=== PATIENT | male | born 1935 | race Caucasian/White ===

== ENCOUNTER 2020-08-29 16:57 | Inpatient (IN) | payer MEDICARE, SELFPAY ==
[2020-08-29 17:03] VITALS: BP 150/90; PULSE 98; RESP 14; TEMP 36.6; O2SAT 95; BMI 21.9
--- NOTE | 2020-08-29 17:11 | ECG_ITS ---
Test Reason : VOMITING Blood Pressure : / mmHG Vent. Rate : 096 BPM Atrial Rate : 096 BPM P-R Int : 192 ms QRS Dur : 160 ms QT Int : 416 ms P-R-T Axes : 000 -44 133 degrees QTc Int : 525 ms Normal sinus rhythm Left axis deviation Left bundle branch block Abnormal ECG When compared with ECG of 17-MAY-2020 01:38, Fusion complexes are no longer Present Premature ventricular complexes are no longer Present Referred By: Norberto Spangler Electronically Signed By:MOHINDER BERGMAN MD
--- NOTE | 2020-08-29 17:18 | XR_ITS ---
EXAMINATION: XR CHEST CLINICAL INFORMATION: Chest pain. Pneumonia. COMPARISON: Chest x-ray 05/16/2020 TECHNIQUE: Frontal view of the chest was obtained. FINDINGS: Stable cardiac silhouette. Atherosclerotic disease of the aortic arch. Chronic diffuse coarsening of the interstitial markings. There is no gross lobar consolidation. No pleural effusion or pneumothorax. Degenerative changes of the spine. IMPRESSION: Chronic interstitial changes without acute pulmonary pathology.
--- NOTE | 2020-08-29 17:20 | ED_ITS ---
HPI - Chest Pain General Chief Complaint: Chest Pain Stated Complaint: vomiting chest pain Time Seen by Provider: 08/29/20 17:17 History of Present Illness HPI narrative: Patient presents to the ED for chest pain with nausea and vomiting since yesterday. Patient states having this multiple times before in the past. Patient states within the past month he has been to [facility] and [facility] for the same issue. Patient denies any swelling of lower extremity or shortness of breath. Patient states he is compliant with dialysis. Patient states his last dialysis was this past Thursday. Patient denies any recent long travel, recent surgery, calf pain, headache, dizziness, slurred speech, paralysis of extremities, facial droop, or neck pain. Patient has substernal chest pain MD complaint: chest pain Onset (ago): day(s) (1) Related Data Home Medications Medication Instructions Recorded Confirmed aspirin [Aspir-81] 81 mg PO DAILY 08/30/20 08/30/20 atorvastatin 80 mg PO DAILY 08/30/20 08/30/20 carvedilol 6.25 mg PO BID 08/30/20 08/30/20 clopidogrel 75 mg PO DAILY 08/30/20 08/30/20 furosemide 40 mg PO BID 08/30/20 08/30/20 glipizide 5 mg PO DAILY 08/30/20 08/30/20 isosorbide mononitrate 120 mg PO DAILY 08/30/20 08/30/20 losartan 25 mg PO DAILY 08/30/20 08/30/20 nifedipine 90 mg PO DAILY 08/30/20 08/30/20 nitroglycerin 0.4 mg SUBLINGUAL Q5M PRN 08/30/20 08/30/20 sevelamer carbonate 800 mg PO TID 08/30/20 08/30/20 terazosin 2 mg PO DAILY 08/30/20 08/30/20 Allergies Allergy/AdvReac Type Severity Reaction Status Date / Time hydralazine Allergy Mild NAUSEA AND Verified 08/29/20 18:06 VOMITING, hallucinations Review of Systems Review of Systems: Yes all other systems are reviewed and are negative Constitutional: Constitutional: Reports no additional constitutional complaints, Denies anorexia, Denies body ache(s), Denies chills, Denies daytime sleepiness, Denies excessive sweating, Denies fatigue and Denies fever(s) Eyes: Eyes: Reports as per HPI and Reports no additional eye complaints ENT: Reports system reviewed and no additional complaints, except as documented and Denies dysphagia Cardiovascular: Cardiovascular: Denies as per HPI, Denies no additional cardiovascular complaints, Denies Abdominal Cramping after Meds, Denies Abdominal Distension, Reports chest pain, Denies chest pain at rest, Denies chest pain with activity, Denies Epigastric Pain, Denies epigastric discomfort, Denies rapid heart rate, Denies pedal edema, Denies dyspnea and Denies dyspnea on exertion Respiratory: Respiratory: Reports as per HPI, Reports no additional respiratory complaints, Denies chest congestion, Denies hemoptysis, Denies excessive phlegm production, Denies pain with cough, Denies dyspnea and Denies dyspnea on exertion Gastrointestinal: Gastrointestinal: Reports as per HPI, Reports no additional gastrointestinal complaints, Denies abdominal pain, Denies belching, Denies melena, Denies bloating, Denies change in bowel habits, Denies change in stool character, Denies constipation, Denies dysphagia, Denies excessive flatus and Denies fecal incontinence Musculoskeletal: Musculoskeletal: Reports no additional musculoskeletal complaints Endocrine: Endocrine: Denies excessive sweating and Denies fatigue [facility] Past Medical History Medical History (Updated 08/30/20 @ 02:13 by GEGE Darby) Dialysis patient Kidney disease Social History Social History Advance Directives: No Advance Directives Information Provided: No Physical Exam Vital Signs: Vital Signs: Vital Signs Temp Pulse Resp BP Pulse Ox 08/29/20 22:27 92 16 131/84 94 08/29/20 21:00 97.6 F 101 H 21 H 142/89 H 97 08/29/20 18:07 89 140/88 H 08/29/20 17:03 97.9 F 98 14 150/90 H 95 Body Mass Index 23.6 Const: General: cooperative, healthy appearing, comfortable and no acute distress HENMT: Head: Yes normal to inspection Eyes: General: appearance normal, both eyes and all related structures Neck: Neck: Yes normal visual inspection, Yes full ROM and Yes no l ymphadenopathy Chest: Chest palpation & inspection: normal inspection of the chest, no crepitus and tenderness (palpalbe chest wall tenderness) sternum, costochondral junction and costal cartilage Resp: Effort & Inspection: normal respiratory effort, able to speak in complete sentences, normal respiratory pattern, no audible wheezes, no cough, no grunting, no paradoxical thoraco-abdom movements, no pursed lip breathing and no tracheal deviation Cardio: Rhythm: regular rhythm Heart sounds: S1 normal heart sound present and S2 normal heart sound present GI: Inspection: Yes normal to inspection, No abdominal wall ecchymosis, No Abdominal wall edema, No distended and No incision Palpation (GI): not firm, nontender, no guarding, not rigid and hepatosplenomegaly present Percussion: Yes normal to percussion Auscultation: normal bowel sounds Extrem: Other: lower extremities bilaterally negative any swelling, redness, pain edema, or calf tenderness General: Yes normal to inspection and Yes full ROM Course Course Course Narrative: due to patient's risk factors of CHF, H, history of diabetes, patient will have cardiac evaluation done. Patient will have chest x-ray done. Patient also given Pepcid. Patient does have significant chest wall tenderness on palpation which may be most likely costochondritis. Nurse Kameron spoke with daughter who states patient was recently seen and [facility] for the same thing and had palpable chest wall pain. Reevaluation(s) Reevaluation #1: patient is sleeping and not in any distress. On room air oxygen 95%. Chest x-ray does not show any pneumonia. Chest x-ray reading does not show fluid overload. BNP of of 2945 expected for someone history of end-stage renal disease. Awaiting for troponin result. Time: 19:52 Reevaluation #2: Patient's initial troponin came back at 69.4. I reviewed discharge papers and lab results from [facility] from his last ED visit on August 21 which showed a troponin high sensitivity of 211. So this is improvement. Unlikely patient having cardiac etiology. Patient's right presently potassium is normal. At [facility] potassium was hyperkalemic. Rest of patient's labs at baseline. Spoke with patient's daughter once again states patient presented similarly at [facility] on the 08/21/2020 with similar symptoms of chest wall pain and nausea. Patient presently sleeping and not any distress. Time: 19:53 Reevaluation #3: Patient's troponin came back 594. Most likely presently patient is having cardiac event. Spoke with Dr. Elizabeth of Cardiology and he was informed of patient's history, physical exam, and diagnostics. He was sent patient's of patient's EKGs and patient is a patient labs. He recommend patient be admitted and started on heparin drip. Heparin drip ordered. Case presented to Dr. Melara for admission. patient's chest pain presently in the ER is 2/10 MDM - Chest Pain MDM Narrative Medical decision making narrative: patient is having an NSTEMI. Patient will be admitted and started on heparin drip. Patient will be evaluated by Cardiology in the morning. Lab Data Result diagrams: 08/29/20 18:03 08/29/20 18:03 Labs: Lab Results 08/29/20 08/29/20 08/29/20 Range/Units 18:03 18:03 18:03 WBC 5.9 (4.8-10.8) X10*3/uL RBC 3.21 L (4.60-5.80) X10*6/uL Hgb 10.1 L (14.0-18.0) g/dl Hct 30.9 L (42-52) % MCV 96.3 (80-98) fL MCH 31.5 (27.0-33.0) pg MCHC 32.7 (31.0-36.0) g/dl RDW 14.4 (11.0-16.0) % Plt Count 180 (160-400) X10*3/uL MPV 11.1 (9.4-12.4) fL Immature Gran % (Auto) 0.2 (0.0-0.4) % Neut % (Auto) 84.5 H (45-73) % Lymph % (Auto) 6.2 L (20-40) % [place] % (Auto) 7.1 (2-11) % Eos % (Auto) 1.7 (0-4) % Baso % (Auto) 0.3 (0-2) % Lymph # (Auto) 0.4 L (1.2-4.9) X10*3/uL [place] # (Auto) 0.4 (0.1-1.2) X10*3/uL Eos # (Auto) 0.1 (0.0-0.4) X10*3/uL Baso # (Auto) 0.0 (0.0-0.2) X10*3/uL Abs Immat Gran (auto) 0.01 (0.00-0.03) X10*3/uL Absolute Neuts (auto) 5.0 (2.0-8.3) X10*3/uL Absolute Nucleated RBC 0.000 (0.0-0.012) X10*3/uL Nucleated RBC % (auto) 0.0 (0.0-0.2) /100WBC Smear Tech's Comments VERIFIED PT 12.9 (10.8-13.0) SEC INR 1.1 (0.9-1.1) APTT 38.5 H (24.1-38.0) SEC Sodium (135-145) mmol/L Potassium (3.3-5.1) mmol/l Chloride (96-108) mmol/L Carbon Dioxide (22-29) mmol/L Anion Gap (12-20) BUN (9-16) mg/dL Creatinine (0.5-1.4) mg/dL Estim Creat Clear Calc Estimated GFR Random Glucose (60-115) mg/dL Calcium (8.4-10.2) mg/dL Total Bilirubin (0.0-1.0) mg/dL Direct Bilirubin (0.0-0.5) mg/dL AST (5-37) U/L ALT (0-40) U/L Alkaline Phosphatase (39-117) U/L Troponin I High Sens 69.4 H (<3.5-35.0) ng/L B-Natriuretic Peptide 2945 H (<100) pg/mL Total Protein (6.5-8.0) g/dL Albumin (3.5-5.0) g/dL Lipase (8-78) U/L 08/29/20 08/29/20 08/29/20 Range/Units 18:03 22:12 23:31 WBC (4.8-10.8) X10*3/uL RBC (4.60-5.80) X10*6/uL Hgb (14.0-18.0) g/dl Hct (42-52) % MCV (80-98) fL MCH (27.0-33.0) pg MCHC (31.0-36.0) g/dl RDW (11.0-16.0) % Plt Count (160-400) X10*3/uL MPV (9.4-12.4) fL Immature Gran % (Auto) (0.0-0.4) % Neut % (Auto) (45-73) % Lymph % (Auto) (20-40) % [place] % (Auto) (2-11) % Eos % (Auto) (0-4) % Baso % (Auto) (0-2) % Lymph # (Auto) (1.2-4.9) X10*3/uL [place] # (Auto) (0.1-1.2) X10*3/uL Eos # (Auto) (0.0-0.4) X10*3/uL Baso # (Auto) (0.0-0.2) X10*3/uL Abs Immat Gran (auto) (0.00-0.03) X10*3/uL Absolute Neuts (auto) (2.0-8.3) X10*3/uL Absolute Nucleated RBC (0.0-0.012) X10*3/uL Nucleated RBC % (auto) (0.0-0.2) /100WBC Smear Tech's Comments PT (10.8-13.0) SEC INR (0.9-1.1) APTT (24.1-38.0) SEC Sodium 142 (135-145) mmol/L Potassium 4.7 (3.3-5.1) mmol/l Chloride 100 (96-108) mmol/L Carbon Dioxide 27 (22-29) mmol/L Anion Gap 20 (12-20) BUN 34 H (9-16) mg/dL Creatinine 5.37 H* (0.5-1.4) mg/dL Estim Creat Clear Calc 9.0 Estimated GFR 10 Random Glucose 213 H (60-115) mg/dL Calcium 9.2 (8.4-10.2) mg/dL Total Bilirubin 0.5 (0.0-1.0) mg/dL Direct Bilirubin 0.3 (0.0-0.5) mg/dL AST 17 (5-37) U/L ALT 17 (0-40) U/L Alkaline Phosphatase 99 (39-117) U/L Troponin I High Sens Cancelled 590.2 H D (<3.5-35.0) ng/L B-Natriuretic Peptide (<100) pg/mL Total Protein 6.7 (6.5-8.0) g/dL Albumin 4.0 (3.5-5.0) g/dL Lipase 23 (8-78) U/L ECG Data ECG #1: Interpretation: Normal sinus rhythm. Left axis deviation. Left bundle branch block. Ventricular rate 96. ECG #2: Interpretation: normal sinus. Left axis deviation, left bundle-branch block. EKG 1 and EKG 2 negative for STEMI Critical Care Time Critical Care Time Critical Care Time: Yes Total Critical Care Time: 60 Attestation: patient receive heparin drip after consulting with Dr. Elizabeth. Patient had repeat EKG to make sure there was no STEMI. Patient given aspirin. Patient's blood pressure under control without any hypertensive medication. No indication for nitrates. patient's chest pain improved with only ASA Discharge Plan Discharge Clinical Impression: Acute non-ST elevation myocardial infarction (NSTEMI) Patient Disposition: Admitted As Inpatient
[2020-08-29 18:07] VITALS: BP 140/88; PULSE 89
[2020-08-29] MEDS: Famotidine/PF 20 MG/2 ML VIAL IVPUSH (18:10)
[2020-08-29] MEDS: ondansetron HCL 4 MG/2 ML VIAL IVPUSH (18:11)
--- NOTE | 2020-08-29 18:13 | PC.NURSE ---
IV EST 29 G R FA, BLOOD TO LAB, MEDICATED PER ORDERS. EKG AND CXR DONE
[2020-08-29 18:24] LABS: Basophils Percent Auto 0.3 % (0-2); Eosinophils Absolute Auto 0.1 X10*3/uL (0.0-0.4); Eosinophils Percent Auto 1.7 % (0-4); Hematocrit 30.9 % (42-52); Hemoglobin 10.1 g/dl (14.0-18.0); Imm Gran Abs Auto 0.01 X10*3/uL (0.00-0.03); Imm Gran Pct Auto 0.2 % (0.0-0.4); Lymphocytes Absolute Auto 0.4 X10*3/uL (1.2-4.9); Lymphocytes Percent Auto 6.2 % (20-40); MANUAL DIFF FLAG SCAN; Mean Corpuscular HGB Conc 32.7 g/dl (31.0-36.0); Mean Corpuscular Hemoglobin 31.5 pg (27.0-33.0); Mean Corpuscular Volume 96.3 fL (80-98); Mean Platelet Volume 11.1 fL (9.4-12.4); Monocytes Absolute Auto 0.4 X10*3/uL (0.1-1.2); Monocytes Percent Auto 7.1 % (2-11); Neutrophils Percent Auto 84.5 % (45-73); Platelet Count 180 X10*3/uL (160-400); Red Blood Count 3.21 X10*6/uL (4.60-5.80); Red Cell Distribution Width 14.4 % (11.0-16.0); SCAN SMEAR FLAG 1; White Blood Count 5.9 X10*3/uL (4.8-10.8)
[2020-08-29 18:34] LABS: INTERNATIONAL NORM RATIO 1.1 (0.9-1.1); Prothrombin Time 12.9 SEC (10.8-13.0)
[2020-08-29 18:37] LABS: Partial Thromboplastin Time 38.5 SEC (24.1-38.0)
[2020-08-29 18:43] LABS: SLIDE REVIEW VERIFIED
[2020-08-29 19:00] LABS: Alanine Aminotransferase 17 U/L (0-40); Alkaline Phosphatase 99 U/L (39-117); Anion Gap 20 (12-20); Aspartate Amino Transferase 17 U/L (5-37); Bilirubin Direct 0.3 mg/dL (0.0-0.5); Bilirubin Total 0.5 mg/dL (0.0-1.0); Blood Urea Nitrogen 34 mg/dL (9-16); Calcium 9.2 mg/dL (8.4-10.2); Carbon Dioxide 27 mmol/L (22-29); Chloride 100 mmol/L (96-108); Estimated Glomerular Filt Rate 10; Glucose Random 213 mg/dL (60-115); Lipase 23 U/L (8-78); Potassium 4.7 mmol/l (3.3-5.1); Sodium 142 mmol/L (135-145); Total Protein 6.7 g/dL (6.5-8.0)
[2020-08-29 19:02] LABS: B Type Natriuretic Peptide 2945 pg/mL (<100)
[2020-08-29 19:34] LABS: Troponin-I High Sensitivity 69.4 ng/L (<3.5-35.0)
--- NOTE | 2020-08-29 20:26 | PC.NURSE ---
pt requesting to leave, provider explained to patient and daughter that he needed a repeat troponin. pt given sandwich, diet soda and pudding.
[2020-08-29 21:00] VITALS: BP 142/89; PULSE 101; RESP 21; TEMP 36.4; O2SAT 97
[2020-08-29 22:27] VITALS: BP 131/84; PULSE 92; PULSE 95; RESP 16; O2SAT 94
[2020-08-30] VITALS (10 sets, daily range): BP systolic 110–160; BP diastolic 59–84; PULSE 69–86; RESP 16–19; TEMP 36.1–36.9; O2SAT 93–97; BMI 23.6
--- NOTE | 2020-08-30 00:20 | PC.NURSE ---
pt redirected when getting out of bed. will call back when troponin level results are back.
[2020-08-30 00:30] LABS: Troponin-I High Sensitivity 590.2 ng/L (<3.5-35.0)
--- NOTE | 2020-08-30 00:31 | ECG_ITS ---
Test Reason : REPEAT Blood Pressure : / mmHG Vent. Rate : 087 BPM Atrial Rate : 087 BPM P-R Int : 194 ms QRS Dur : 166 ms QT Int : 446 ms P-R-T Axes : 066 -43 136 degrees QTc Int : 536 ms Normal sinus rhythm with intermittent aberrant ventricular conduction Left axis deviation Left bundle branch block Abnormal ECG When compared with ECG of 29-AUG-2020 17:11, Premature ventricular complexes with intermittent aberrant ventricular conduction are new Referred By: Norberto Spangler Electronically Signed By:MOHINDER BERGMAN MD
[2020-08-30] MEDS: Aspirin Enteric Coated 325 MG TABLET.DR PO (00:49)
[2020-08-30] MEDS: Heparin Sodium,Porcine 5,000 UNIT/ML VIAL 3810 UNIT IVPUSH (01:48)
[2020-08-30] MEDS: Heparin Sodium,Porcine/1/2NS 25,000 UNIT/250 ML IV.SOLN 8.21 UNIT IVCONT (01:49)
--- NOTE | 2020-08-30 02:33 | PC.NURSE ---
pt's repeat troponis elevated. plan is to admit patient, daughter aware.
--- NOTE | 2020-08-30 02:42 | PC.NURSE ---
called daughter Rachel and asked her if pt had a MOLST form or any wishes when it came to end of life. Rachel reports that there is no form in place, but there have been a few conversations with her father. He would prefer no aggressive intervention, comfort measures only, if he were to decline.
--- NOTE | 2020-08-30 02:45 | PM.IMHP ---
History of Present Illness Date of Service: 08/30/20 Chief Complaint: chest pain this is an 85-year-old male with past medical history of diabetes, hypertension, coronary artery disease, ESRD on dialysis Thursday and , who presents to the hospital with chest pain. On my interview patient is pretty lethargic, unable to focus on my questions but does endorse chest pain that started yesterday. Most of the history is obtained from the ED PA who saw the patient on initial presentation peer it appears the patient has been having chest pain for the past few weeks. He presented to [facility] in [place] with similar complaints last week. He returns today stating that he has been having chest pain on and off occurs on exertion. Reported to be heavy room in sensation, non-radiating. When asked the patient how bad the pain once he said not too bad on arrival to the ED hemodynamically stable with no significant abnormal vice Labs are significant for hemoglobin of 10.1, BUN of 34, creatinine of 5.3, initial troponin of 69.4, increased to 590.2 cardiology was consulted and patient was started on heparin ggt and will be admitted for further management history is obtained from chart as patient is lethargic and not cooperating. PMHx: HTN, diabetes, HLP, CAD, BPH, ESRD on dialysis, past surgical history: None Family history nonsignificant Social history: no hx of alcohol abuse, smoking or IV drug abuse Review of Systems Review of Systems: unable to obtain complete review of system is patient is lethargic and not answering questions appropriately [facility] Medical History Dialysis patient Kidney disease Social History Alcohol intake: never Smoking Status: Never smoker Use of substances other than those prescribed or required for medical reasons: No Advance Directives: No Advance Directives Information Provided: No Meds Allergies Allergy/AdvReac Type Severity Reaction Status Date / Time hydralazine Allergy Mild NAUSEA AND Verified 08/29/20 18:06 VOMITING, hallucinations Home Medications Medication Instructions Recorded Confirmed Type aspirin [Aspir-81] 81 mg PO DAILY 08/30/20 08/30/20 History atorvastatin 80 mg PO DAILY 08/30/20 08/30/20 History carvedilol 6.25 mg PO BID 08/30/20 08/30/20 History clopidogrel 75 mg PO DAILY 08/30/20 08/30/20 History furosemide 40 mg PO BID 08/30/20 08/30/20 History glipizide 5 mg PO DAILY 08/30/20 08/30/20 History isosorbide mononitrate 120 mg PO DAILY 08/30/20 08/30/20 History losartan 25 mg PO DAILY 08/30/20 08/30/20 History nifedipine 90 mg PO DAILY 08/30/20 08/30/20 History nitroglycerin 0.4 mg SUBLINGUAL Q5M PRN 08/30/20 08/30/20 History sevelamer carbonate 800 mg PO TID 08/30/20 08/30/20 History terazosin 2 mg PO DAILY 08/30/20 08/30/20 History Physical Exam Vital Signs and Narrative: Vital Signs: Last Vital Signs Temp 97.6 F 08/29/20 21:00 Pulse 92 08/29/20 22:27 Resp 16 08/29/20 22:27 BP 131/84 08/29/20 22:27 Pulse Ox 94 08/29/20 22:27 Body Mass Index 23.6 Const: General: cooperative and no acute distress Orientation/consciousness: patient oriented x3 Eyes: General: appearance normal, both eyes and all related structures Pupils: Equal, round and reactive pupils present Resp: Effort & Inspection: normal respiratory effort and able to speak in complete sentences Auscultation: clear to auscultation bilaterally Cardio: Rate: regular rate Rhythm: regular rhythm GI: Palpation (GI): Soft to palpation Auscultation: normal bowel sounds Skin: General skin exam: no rashes or lesions noted Neuro: General: patient oriented x3 Cranial nerves: Yes Equal, round and reactive pupils present Cognition (Neuro): normal cognition Extrem: General: Yes normal to inspection and Yes no pedal edema Results Labs Labs: Laboratory Tests 08/29/20 08/29/20 08/29/20 18:03 18:03 18:03 WBC 5.9 RBC 3.21 L Hgb 10.1 L Hct 30.9 L MCV 96.3 MCH 31.5 MCHC 32.7 RDW 14.4 Plt Count 180 MPV 11.1 Immature Gran % (Auto) 0.2 Neut % (Auto) 84.5 H Lymph % (Auto) 6.2 L [place] % (Auto) 7.1 Eos % (Auto) 1.7 Baso % (Auto) 0.3 Lymph # (Auto) 0.4 L [place] # (Auto) 0.4 Eos # (Auto) 0.1 Baso # (Auto) 0.0 Abs Immat Gran (auto) 0.01 Absolute Neuts (auto) 5.0 Absolute Nucleated RBC 0.000 Nucleated RBC % (auto) 0.0 Smear Tech's Comments VERIFIED PT 12.9 INR 1.1 APTT 38.5 H Sodium Potassium Chloride Carbon Dioxide Anion Gap BUN Creatinine Estim Creat Clear Calc Estimated GFR Random Glucose Calcium Total Bilirubin Direct Bilirubin AST ALT Alkaline Phosphatase Troponin I High Sens 69.4 H B-Natriuretic Peptide 2945 H Total Protein Albumin Lipase 08/29/20 08/29/20 08/29/20 18:03 22:12 23:31 WBC RBC Hgb Hct MCV MCH MCHC RDW Plt Count MPV Immature Gran % (Auto) Neut % (Auto) Lymph % (Auto) [place] % (Auto) Eos % (Auto) Baso % (Auto) Lymph # (Auto) [place] # (Auto) Eos # (Auto) Baso # (Auto) Abs Immat Gran (auto) Absolute Neuts (auto) Absolute Nucleated RBC Nucleated RBC % (auto) Smear Tech's Comments PT INR APTT Sodium 142 Potassium 4.7 Chloride 100 Carbon Dioxide 27 Anion Gap 20 BUN 34 H Creatinine 5.37 H* Estim Creat Clear Calc 9.0 Estimated GFR 10 Random Glucose 213 H Calcium 9.2 Total Bilirubin 0.5 Direct Bilirubin 0.3 AST 17 ALT 17 Alkaline Phosphatase 99 Troponin I High Sens Cancelled 590.2 H D B-Natriuretic Peptide Total Protein 6.7 Albumin 4.0 Lipase 23 Assessment and Plan (1) ESRD on dialysis: Status: Acute (2) Hypertension: Status: Acute (3) Acute non-ST elevation myocardial infarction (NSTEMI): Status: Acute (4) Diabetes: Status: Acute (5) Coronary artery disease: Status: Acute 85-year-old male admitted for chest pain found to have NSTEMI # NSTEMI - chest pain, troponin elevated at 590, EKG showed undeterminate rhythm plan: - Cardiology was consulted by ED physician, patient started on heparin GGT - continue aspirin, and Plavix from based - patient on atorvastatin and carvedilol at baseline will continue # elevated BNP - clinically does not appear to be in CHF exacerbation - Pt had no respiratory symptoms and reported no respiratory symptoms on arrival per PA - Sating 96% on RA - no tachypnea , no pedal edema Plan: - Continue home furosemide, Imdur, losartan, carvedilol - monitor respiratory status # CAD - status post stent - continue dual antiplatelets, carvedilol, # hypertension - stable - continue losartan, carvedilol # diabetes type 2 - on oral antihyperglycemic- will hold - start low-dose sliding scale insulin
--- NOTE | 2020-08-30 03:10 | PC.NURSE ---
pt report given to rn on floor, pt ready for transport
[2020-08-30] MEDS: 0.9 % Sodium Chloride Flush 3 ML SYRINGE IVFLUSH ×2 (08:01→16:23)
[2020-08-30] MEDS: Losartan Potassium 25 MG TABLET PO (08:04)
[2020-08-30] MEDS: Aspirin Enteric Coated 81 MG TABLET.DR PO (08:05)
[2020-08-30] MEDS: NIFEdipine ER 90 MG TAB.ER.24 PO (08:06)
[2020-08-30] MEDS: Furosemide 40 MG TABLET PO ×2 (08:06→21:23)
[2020-08-30] MEDS: Clopidogrel Bisulfate 75 MG TABLET PO (08:06)
[2020-08-30] MEDS: Atorvastatin Calcium 80 MG TABLET PO (08:06)
[2020-08-30] MEDS: carvediloL 6.25 MG TABLET PO ×2 (08:06→21:21)
[2020-08-30 08:30] LABS: Glucose, Whole Blood 147 mg/dL (60-115)
[2020-08-30 08:47] LABS: PTT Heparin Drip 67.1 SEC (53-77.9)
--- NOTE | 2020-08-30 09:49 | MHC.CM.PN ---
CM met with Patient who appeared slightly confused and very forgetful. CM spoke with Daughter/HCP/Vianca at [phone]. Patient lives alone in a ranch style home and Vianca has daily involvement, including driving Patient to HD Q , Sat to [facility] in [place]. The goal for dc is home with a new referral to [facility] for home PT, VS STR at [facility] with onsite HD. CM has initiated and will follow for dc planning. [facility] mailed certified letter to Vianca and a copy has been placed on the chart. Patient has a cane and his PCP is Dr. Micheal Paul. Patient's insurance is [employer] Medicare [employer]vant[employer] (referral sent to [facility] because Patient is listed as self pay).
--- NOTE | 2020-08-30 10:25 | MHC.CLN ---
WILL START 1800DIABETIC 2 GM NA LOW PHOS AND LOW K+ DIET PER RENAL
--- NOTE | 2020-08-30 11:00 | P.CONCA_ITS ---
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 He also has severely reduced ejection fraction on the echocardiography and congestive heart failure. He is coming in mainly if with complaint of chest pain. He is very confused and could not give any history. I do not know whether that is his baseline or this is a change in his mental status. His blood workup showed elevated troponin levels. He has presented multiple times like this and has been treated medically for NSTEMI. He also has moderate . Currently he is unable to give any history. Review of Systems Review of Systems: Yes all other systems are reviewed and are negative Cardiovascular: Comments: Denies chest pain or shortness of breath. Neurologic: Comments: Confused. Only oriented to self. [facility] Past Medical History Medical History Dialysis patient Kidney disease Social History Social History Household Members: Unknown / Unable to assess Housing: Unknown / Unable to assess Do you presently have visiting nurse or other home services: No Alcohol intake: never Smoking Status: Never smoker Use of substances other than those prescribed or required for medical reasons: Unknown Advance Directives: No Advance Directives Information Provided: No Do you have thoughts of harming others: None Do you have a plan to hurt others: No Plan Recently lost weight without trying: Unsure service: Yes Current occupational status: retired Meds Allergies Allergy/AdvReac Type Severity Reaction Status Date / Time hydralazine Allergy Mild NAUSEA AND Verified 08/29/20 18:06 VOMITING, hallucinations Home Medications Medication Instructions Recorded Confirmed Type aspirin [Aspir-81] 81 mg PO DAILY 08/30/20 08/30/20 History atorvastatin 80 mg PO DAILY 08/30/20 08/30/20 History carvedilol 6.25 mg PO BID 08/30/20 08/30/20 History clopidogrel 75 mg PO DAILY 08/30/20 08/30/20 History furosemide 40 mg PO BID 08/30/20 08/30/20 History glipizide 5 mg PO DAILY 08/30/20 08/30/20 History isosorbide mononitrate 120 mg PO DAILY 08/30/20 08/30/20 History losartan 25 mg PO DAILY 08/30/20 08/30/20 History nifedipine 90 mg PO DAILY 08/30/20 08/30/20 History nitroglycerin 0.4 mg SUBLINGUAL Q5M PRN 08/30/20 08/30/20 History sevelamer carbonate 800 mg PO TID 08/30/20 08/30/20 History terazosin 2 mg PO DAILY 08/30/20 08/30/20 History Physical Exam Vital Signs: Vital Signs: Vital Signs Temp Pulse Resp BP Pulse Ox 08/30/20 08:06 82 160/80 H 08/30/20 08:04 82 160/80 H 08/30/20 07:52 98.2 F 82 18 160/80 H 97 08/30/20 04:00 97.0 F 69 16 96 08/30/20 03:32 97.2 F 80 19 155/73 H 95 08/30/20 02:53 86 16 154/73 H 96 08/29/20 22:27 92 16 131/84 94 08/29/20 21:00 97.6 F 101 H 21 H 142/89 H 97 08/29/20 18:07 89 140/88 H 08/29/20 17:03 97.9 F 98 14 150/90 H 95 Body Mass Index 23.6 Const: Other: GENERAL APPEARANCE: in no acute distress, Frail. HEENT: unremarkable. HEAD: normocephalic, atraumatic. NECK/THYROID: no carotid bruit, no jugular venous distention. SKIN: no suspicious lesions, warm and dry. HEART: systolic murmur with preserved 2nd heart sound in the aortic area, regular rate and rhythm, S1, S2 normal. LUNGS: clear to auscultation bilaterally. ABDOMEN: normal, bowel sounds present, soft, nontender, nondistended. EXTREMITIES: no clubbing, cyanosis, or edema. PERIPHERAL PULSES: equal. NEUROLOGIC: nonfocal, oriented to self. PSYCH: mood/affect full range. Results Labs and Meds Result diagrams: 08/29/20 18:03 08/29/20 18:03 Lab results: Laboratory Results - last 24 hr 08/29/20 08/29/20 08/29/20 18:03 18:03 18:03 WBC 5.9 RBC 3.21 L Hgb 10.1 L Hct 30.9 L MCV 96.3 MCH 31.5 MCHC 32.7 RDW 14.4 Plt Count 180 MPV 11.1 Immature Gran % (Auto) 0.2 Neut % (Auto) 84.5 H Lymph % (Auto) 6.2 L Bartholomew % (Auto) 7.1 Eos % (Auto) 1.7 Baso % (Auto) 0.3 Lymph # (Auto) 0.4 L Bartholomew # (Auto) 0.4 Eos # (Auto) 0.1 Baso # (Auto) 0.0 Abs Immat Gran (auto) 0.01 Absolute Neuts (auto) 5.0 Absolute Nucleated RBC 0.000 Nucleated RBC % (auto) 0.0 Smear Tech's Comments VERIFIED PT 12.9 INR 1.1 APTT 38.5 H PTT (Heparin Protocol) Sodium Potassium Chloride Carbon Dioxide Anion Gap BUN Creatinine Estim Creat Clear Calc Estimated GFR POC Glucose Random Glucose Calcium Total Bilirubin Direct Bilirubin AST ALT Alkaline Phosphatase Troponin I High Sens 69.4 H B-Natriuretic Peptide 2945 H Total Protein Albumin Lipase 08/29/20 08/29/20 08/29/20 18:03 22:12 23:31 WBC RBC Hgb Hct MCV MCH MCHC RDW Plt Count MPV Immature Gran % (Auto) Neut % (Auto) Lymph % (Auto) Bartholomew % (Auto) Eos % (Auto) Baso % (Auto) Lymph # (Auto) Bartholomew # (Auto) Eos # (Auto) Baso # (Auto) Abs Immat Gran (auto) Absolute Neuts (auto) Absolute Nucleated RBC Nucleated RBC % (auto) Smear Tech's Comments PT INR APTT PTT (Heparin Protocol) Sodium 142 Potassium 4.7 Chloride 100 Carbon Dioxide 27 Anion Gap 20 BUN 34 H Creatinine 5.37 H* Estim Creat Clear Calc 9.0 Estimated GFR 10 POC Glucose Random Glucose 213 H Calcium 9.2 Total Bilirubin 0.5 Direct Bilirubin 0.3 AST 17 ALT 17 Alkaline Phosphatase 99 Troponin I High Sens Cancelled 590.2 H D B-Natriuretic Peptide Total Protein 6.7 Albumin 4.0 Lipase 23 08/30/20 08/30/20 07:50 07:50 WBC RBC Hgb Hct MCV MCH MCHC RDW Plt Count MPV Immature Gran % (Auto) Neut % (Auto) Lymph % (Auto) Bartholomew % (Auto) Eos % (Auto) Baso % (Auto) Lymph # (Auto) Bartholomew # (Auto) Eos # (Auto) Baso # (Auto) Abs Immat Gran (auto) Absolute Neuts (auto) Absolute Nucleated RBC Nucleated RBC % (auto) Smear Tech's Comments PT INR APTT PTT (Heparin Protocol) 67.1 Sodium Potassium Chloride Carbon Dioxide Anion Gap BUN Creatinine Estim Creat Clear Calc Estimated GFR POC Glucose 147 H Random Glucose Calcium Total Bilirubin Direct Bilirubin AST ALT Alkaline Phosphatase Troponin I High Sens B-Natriuretic Peptide Total Protein Albumin Lipase Cardiology Testing Echo: report reviewed Cardiac cath: report reviewed EKG Interpretation EKG Comments: ECG showed sinus rhythm with the left bundle-branch block which is chronic, lateral ST depressions with T-wave inversions which are more pronounced than before. Assessment and Plan (1) Chronic systolic (congestive) heart failure: Status: Acute (2) Coronary artery disease: Status: Acute (3) Hypertension: Problem details: resume outpt med Status: Acute (4) ESRD on dialysis: Status: Acute (5) Acute non-ST elevation myocardial infarction (NSTEMI): Status: Acute 85-year-old gentleman with known coronary artery disease for which he was proposed to undergo bypass surgery but refused surgery in the past and history of cardiomyopathy in EF 25%, end-stage renal disease on hemodialysis, hypertension and previous admissions with the NSTEMI was presenting with reported chest pain and biomarker evidence of NSTEMI. He is confused and cannot give any history right now. Clinically and hemodynamically currently stable. He is denying any chest discomfort shortness of breath. I think is reasonable to treat him for 48 hours with heparin drip. Blood pressure control looks okay right now. He will undergo his hemodialysis 3 times a week as before. He is DNR DNI. He has been admitted before with similar complaints. I think he needs a goals of care discussion. Thank you for allowing me to participate in the care of your patient. Please feel free to contact me if you have any questions.
[2020-08-30 11:11] LABS: Glucose, Whole Blood 182 mg/dL (60-115)
[2020-08-30] MEDS: Insulin Lispro 100 UNIT/ML 3 ML VIAL SUBCUT ×2 (11:33→21:18)
--- NOTE | 2020-08-30 12:06 | W.PM.DNNEP ---
Subjective Subjective This patient was seen during dialysis. Physical Exam Vital Signs: Vital Signs: Vital Signs Temp Pulse Resp BP Pulse Ox 08/30/20 11:16 98.5 F 72 18 137/84 94 08/30/20 08:06 82 160/80 H 08/30/20 08:04 82 160/80 H 08/30/20 07:52 98.2 F 82 18 160/80 H 97 08/30/20 04:00 97.0 F 69 16 96 08/30/20 03:32 97.2 F 80 19 155/73 H 95 08/30/20 02:53 86 16 154/73 H 96 08/29/20 22:27 92 16 131/84 94 08/29/20 21:00 97.6 F 101 H 21 H 142/89 H 97 08/29/20 18:07 89 140/88 H 08/29/20 17:03 97.9 F 98 14 150/90 H 95 oral moist mucosa neck no JVP lungs clear s1s2 abd soft nt +BS ext no edema LUE AVF OK Neuro Alert Body Mass Index 23.6 Assessment & Plan Assessment and plan (1) ESRD on dialysis: Problem details: HD today as planned gentle fluid removal orders in,OF 160 2k 2.5 Ca bath if SBP<100 give NS 500 ml IVB Status: Acute (2) Hypertension: Problem details: resume outpt med Status: Acute Assessment and Plan: NSTEMI, awauting further recs from Cards, presently tolerating HD well on heparin drip (3) Diabetes: Problem details: as per medical team Status: Acute Time Spent With Patient Time: Total time spent is greater than 50% in coordination of care (as documented) at patient's floor/unit and/or counseling patient:
--- NOTE | 2020-08-30 13:22 | CONS_ITS ---
DATE OF SERVICE: 08/30/2020 REASON FOR CONSULTATION: Evaluation of end-stage kidney disease, on intermittent hemodialysis. HISTORY OF PRESENT ILLNESS: Mr. Salazar is a very pleasant 85-year-old gentleman, who has been brought to the hospital for evaluation of chest pain. He has longstanding history of ESRD, on intermittent hemodialysis on Thursday, , Thursday at the [facility]. He was admitted for evaluation of chest pain. The patient was brought in after stating he was having chest pain along with shortness of breath. He reported heavy sensation in the center of his chest with no radiation. On arrival to the emergency room, he was hemodynamically stable, he was found to have an initial troponin level of 69, which increased to 590. Cardiology was consulted for evaluation as well. He does have a history of ESRD and he is due for his regular dialysis treatment today. PAST MEDICAL HISTORY: He is early on intermittent hemodialysis Thursday, , Thursday at [facility]. Hypertension, hyperlipidemia, diabetes mellitus, coronary artery disease, benign prostatic hypertrophy. OUTPATIENT MEDICATIONS: Include Plavix 75 mg daily, terazosin 2 mg daily, Renvela 800 mg 3 times a day with meals, losartan 25 mg daily, glipizide 5 mg daily, nifedipine 90 mg daily, atorvastatin 80 mg daily, Imdur 120 mg daily, carvedilol 6.25 mg twice daily, baby aspirin 81 mg daily, and Lasix 40 mg twice daily. ALLERGIES: HYDRALAZINE. SOCIAL HISTORY: Lives at home with his family. Denies history of smoking cigarettes. No alcohol intake. No illicit drugs. FAMILY HISTORY: Noncontributory. REVIEW OF SYSTEMS: Denies any nausea, vomiting, diarrhea, abdominal pain, melena, headache, visual changes, chest pain, shortness of breath, palpitations, cough, hemoptysis, hematemesis, or bright red blood per rectum at the time of my evaluation. PHYSICAL EXAMINATION: GENERAL: On physical evaluation, he is alert, in no apparent distress. He is afebrile, in no apparent distress, slightly confused. He was alert, oriented to person, but disoriented to time and place. VITAL SIGNS: His blood pressure is 131/80, heart rate of 92 per minute, oxygen saturation 94% on 2 L nasal cannula. HEENT: Oral moist mucosa. NECK: Reveals no jugular venous distention. LUNGS: Clear bilaterally. HEART: S1, S2. No S3, no S4. No murmurs. ABDOMEN: Soft, nontender. Positive bowel sounds. EXTREMITIES: Showed no ankle edema. Left upper extremity, well-developed AV fistula. NEUROLOGIC: Nonfocal. LABORATORY DATA: As mentioned above. Hemoglobin 10.1. Potassium 4.7. Troponin increased up to 590. Normal liver function tests. Chest x-ray not available. IMPRESSION: Mr. Satnam Salazar is a pleasant 85-year-old gentleman, who has a longstanding history of ESRD, on intermittent hemodialysis 3 times a week, who is admitted to the hospital for evaluation of chest pain. On evaluation, the patient has had improvement in his symptoms after starting therapy on aspirin and heparin drip. He is being evaluated by Cardiology, the patient has an EKG that has shown normal sinus rhythm with left axis deviation and a left bundle-branch block, his blood pressure has been unstable. He is now asymptomatic. We will follow up on Cardiology recommendations. In the meantime, we will plan to do his regular dialysis treatment today for 4 hours, will be gentle with fluid removal and we will resume his outpatient medication regimen. Presently, he is on carvedilol, which should be continued, phosphate binders, losartan 25 mg daily, and nifedipine 90 mg daily for blood pressure control. We will follow his blood pressures during hospitalization and if need be, adjust the blood pressure regimen. Fortunately, chest x-ray did not show fluid overload. At the present time, we will plan to remove fluid very gently with close monitoring of his vital signs and particularly blood pressure. With your permission, we will continue to follow during the hospital stay. MD MAGGIE Anaya/DEJON / [phone]
[2020-08-30 14:19] LABS: PTT Heparin Drip 53.4 SEC (53-77.9)
[2020-08-30 16:15] LABS: Glucose, Whole Blood 116 mg/dL (60-115)
[2020-08-30 21:20] LABS: Glucose, Whole Blood 201 mg/dL (60-115)
[2020-08-31] VITALS (10 sets, daily range): BP systolic 111–153; BP diastolic 56–72; PULSE 60–77; RESP 18–20; TEMP 35.6–36.9; O2SAT 93–97
[2020-08-31] MEDS: 0.9 % Sodium Chloride Flush 3 ML SYRINGE IVFLUSH ×3 (01:03→22:24)
[2020-08-31 06:45] LABS: Basophils Absolute Auto 0.1 X10*3/uL (0.0-0.2); Basophils Percent Auto 0.9 % (0-2); Eosinophils Absolute Auto 0.1 X10*3/uL (0.0-0.4); Hematocrit 29.9 % (42-52); Hemoglobin 9.8 g/dl (14.0-18.0); Imm Gran Abs Auto 0.02 X10*3/uL (0.00-0.03); Imm Gran Pct Auto 0.3 % (0.0-0.4); Lymphocytes Absolute Auto 0.7 X10*3/uL (1.2-4.9); Lymphocytes Percent Auto 10.6 % (20-40); MANUAL DIFF FLAG SCAN; Mean Corpuscular HGB Conc 32.8 g/dl (31.0-36.0); Mean Corpuscular Hemoglobin 31.5 pg (27.0-33.0); Mean Corpuscular Volume 96.1 fL (80-98); Mean Platelet Volume 11.4 fL (9.4-12.4); Monocytes Absolute Auto 0.6 X10*3/uL (0.1-1.2); Monocytes Percent Auto 9.8 % (2-11); Neutrophils Percent Auto 76.4 % (45-73); Platelet Count 191 X10*3/uL (160-400); Red Blood Count 3.11 X10*6/uL (4.60-5.80); Red Cell Distribution Width 14.3 % (11.0-16.0); SCAN SMEAR FLAG 1; White Blood Count 6.5 X10*3/uL (4.8-10.8)
[2020-08-31 06:54] LABS: PTT Heparin Drip 43.3 SEC (53-77.9)
[2020-08-31] MEDS: Heparin Sodium,Porcine/1/2NS 25,000 UNIT/250 ML IV.SOLN 7.62 UNIT IVCONT (06:59)
[2020-08-31 07:08] LABS: Anion Gap 16 (12-20); Blood Urea Nitrogen 27 mg/dL (9-16); Calcium 8.7 mg/dL (8.4-10.2); Carbon Dioxide 28 mmol/L (22-29); Chloride 96 mmol/L (96-108); Creatinine Clr Calc Pharmacy 12.7; Estimated Glomerular Filt Rate 14; Glucose Fasting 109 mg/dL (60-99); Potassium 4.1 mmol/l (3.3-5.1); Sodium 136 mmol/L (135-145)
[2020-08-31] MEDS: NIFEdipine ER 90 MG TAB.ER.24 PO (07:15)
[2020-08-31] MEDS: Losartan Potassium 25 MG TABLET PO (07:16)
[2020-08-31] MEDS: Aspirin Enteric Coated 81 MG TABLET.DR PO (07:16)
[2020-08-31] MEDS: Furosemide 40 MG TABLET PO ×2 (07:16→21:26)
[2020-08-31] MEDS: carvediloL 6.25 MG TABLET PO (07:16)
[2020-08-31] MEDS: Atorvastatin Calcium 80 MG TABLET PO (07:17)
[2020-08-31] MEDS: Clopidogrel Bisulfate 75 MG TABLET PO (07:17)
[2020-08-31 07:34] LABS: Glucose, Whole Blood 111 mg/dL (60-115)
[2020-08-31 07:49] LABS: SLIDE REVIEW VERIFIED
[2020-08-31] MEDS: Heparin Sodium,Porcine 5,000 UNIT/ML VIAL IVPUSH ×2 (08:29→22:19)
--- NOTE | 2020-08-31 10:55 | HO.PM.IMPN ---
Subjective Subjective Date of Service: 08/31/20 Interval History: no chest pain Cardiovascular Cardiovascular: Reports no additional cardiovascular complaints Respiratory Respiratory: Reports no additional respiratory complaints Gastrointestinal Gastrointestinal: Reports no additional gastrointestinal complaints Physical Exam Vital Signs: Vital Signs: Vital Signs Temp Pulse Resp BP Pulse Ox 08/31/20 07:32 96.0 F L 73 18 153/67 H 95 08/31/20 07:16 73 153/67 H 08/31/20 07:15 73 153/67 H 08/31/20 04:00 97.6 F 77 20 147/72 H 93 08/31/20 00:54 98.4 F 71 20 130/66 08/30/20 21:21 81 119/60 08/30/20 19:09 96.9 F 79 19 110/59 L 93 08/30/20 16:00 98.2 F 72 18 140/66 H 93 08/30/20 11:16 98.5 F 72 18 137/84 94 Body Mass Index 23.6 Const: Other: GENERAL APPEARANCE: in no acute distress, Frail. HEENT: unremarkable. HEAD: normocephalic, atraumatic. NECK/THYROID: no carotid bruit, no jugular venous distention. SKIN: no suspicious lesions, warm and dry. HEART: systolic murmur with preserved 2nd heart sound in the aortic area, regular rate and rhythm, S1, S2 normal. LUNGS: clear to auscultation bilaterally. ABDOMEN: normal, bowel sounds present, soft, nontender, nondistended. EXTREMITIES: no clubbing, cyanosis, or edema. PERIPHERAL PULSES: equal. NEUROLOGIC: nonfocal, oriented to self. PSYCH: mood/affect full range. General: cooperative, healthy appearing, comfortable and no acute distress Orientation/consciousness: patient oriented x3 Neuro: General: patient oriented x3 Objective Data Current Medications Generic Name Dose Route Start Last Admin Trade Name Freq PRN Reason Stop Dose Admin Acetaminophen 650 mg 08/30/20 03:34 Acetaminophen 325 Mg Tablet PO Q6H PRN Pain, Mild (Pain Scale 1-3) Aspirin 81 mg 08/30/20 09:00 08/31/20 07:16 Aspirin Enteric Coated 81 Mg Tablet. PO 81 mg DAILY MANDY Administration Atorvastatin Calcium 80 mg 08/30/20 09:00 08/31/20 07:17 Atorvastatin Calcium 80 Mg Tablet PO 80 mg DAILY MANDY Administration Carvedilol 12.5 mg 10/16/20 21:00 Carvedilol 12.5 Mg Tablet PO BID [facility] Protocol Clopidogrel Bisulfate 75 mg 08/30/20 09:00 08/31/20 07:17 Clopidogrel Bisulfate 75 Mg Tablet PO 75 mg DAILY MANDY Administration Docusate Sodium 100 mg 08/30/20 03:34 Docusate Sodium 100 Mg Capsule PO DAILY PRN Constipation Furosemide 40 mg 08/30/20 09:00 08/31/20 07:16 Furosemide 40 Mg Tablet PO 40 mg BID [facility] Administration Protocol Heparin Sodium (Porcine) 0 unit 08/31/20 08:19 08/31/20 08:29 Heparin Sodium,Porcine 5,000 Unit/Ml Vial IVPUSH 2,739.6 unit BOLUS PRN Administration BASED ON PTT-HD RESULTS Heparin Sodium/Sodium Chloride 25,000 unit in 250 mls @ 0 mls/hr 08/30/20 01:30 08/31/20 08:30 IVCONT 15.09 units/kg/hr .Q0M [facility] 9.58 mls/hr Titration Protocol Per Protocol Insulin Human Lispro 0 unit 08/30/20 07:30 08/31/20 08:44 Insulin Lispro 100 Unit/Ml 3 Ml Vial SUBCUT Not Given QIDACHS [facility] Protocol Losartan Potassium 25 mg 08/30/20 09:00 08/31/20 07:16 Losartan Potassium 25 Mg Tablet PO 25 mg DAILY [facility] Administration Protocol Nifedipine 90 mg 08/30/20 09:00 08/31/20 07:15 Nifedipine Er 90 Mg Tab.Er.24 PO 90 mg DAILY [facility] Administration Protocol Nitroglycerin 0.4 mg 08/30/20 03:34 Nitroglycerin 0.4 Mg Tab.Subl SUBLINGUAL Q5M PRN Chest Pain Ondansetron HCl 4 mg 08/30/20 03:34 Ondansetron Hcl 4 Mg/2 Ml Vial IVPUSH Q8H PRN Nausea and Vomiting Sodium Chloride 3 ml 08/30/20 08:00 08/31/20 07:03 0.9 % Sodium Chloride Flush 3 Ml Syringe IVFLUSH 3 ml QSHIFT [facility] Administration Labs CBC & Chem 7: 08/31/20 05:44 08/31/20 05:44 Assessment and Plan (1) ESRD on dialysis: Status: Acute (2) Hypertension: Problem details: resume outpt med Status: Acute (3) Acute non-ST elevation myocardial infarction (NSTEMI): Status: Acute (4) Diabetes: Problem details: as per medical team Status: Acute (5) Coronary artery disease: Status: Acute Assessment and Plan: 85-year-old male admitted for chest pain found to have NSTEMI NSTEMI in the setting of known CAD continue 48 hour course of heparin dual antiplatelet beta-juan hypertension losartan and Coreg Diabetes insulin
[2020-08-31 11:49] LABS: Glucose, Whole Blood 135 mg/dL (60-115)
--- NOTE | 2020-08-31 13:01 | PM.PNNEP ---
Subjective Subjective Interval history: no chest pain had HD yesterday no complaints Physical Exam Vital Signs: Vital Signs: Vital Signs Temp Pulse Resp BP Pulse Ox 08/31/20 11:30 96.6 F L 60 18 111/56 L 96 08/31/20 07:32 96.0 F L 73 18 153/67 H 95 08/31/20 07:16 73 153/67 H 08/31/20 07:15 73 153/67 H 08/31/20 04:00 97.6 F 77 20 147/72 H 93 08/31/20 00:54 98.4 F 71 20 130/66 08/30/20 21:21 81 119/60 08/30/20 19:09 96.9 F 79 19 110/59 L 93 08/30/20 16:00 98.2 F 72 18 140/66 H 93 Body Mass Index 23.6 Const: Other: oral moist mucosa lungs clear s1s2 abd soft +BSs ext noedema AVF +thrill General: cooperative Assessment & Plan Assessment and plan (1) ESRD on dialysis: Status: Acute Assessment and Plan: HD tomorrow thursday (2) Acute non-ST elevation myocardial infarction (NSTEMI): Status: Acute Assessment and Plan: as per cardiology, on heparin drip. ?need further therapy at present time. will follow recs (3) Hypertension: Problem details: resume outpt med, euvolemic today, meds reviewed. Status: Acute Assessment and Plan: Keep Low Na diet Time Spent With Patient Time: Total time spent is greater than 50% in coordination of care (as documented) at patient's floor/unit and/or counseling patient:
--- NOTE | 2020-08-31 13:37 | MHC.CM.PN ---
Home remains the first goal for dc. Patient was found to have NSTEMI and 48 hour course of Heparin is in progress. CM will follow.
[2020-08-31 15:44] LABS: PTT Heparin Drip 55.5 SEC (53-77.9)
[2020-08-31 16:05] LABS: Glucose, Whole Blood 211 mg/dL (60-115)
[2020-08-31] MEDS: Insulin Lispro 100 UNIT/ML 3 ML VIAL SUBCUT (16:34)
[2020-08-31 20:43] LABS: Glucose, Whole Blood 111 mg/dL (60-115)
[2020-08-31 21:26] LABS: PTT Heparin Drip 50.7 SEC (53-77.9)
[2020-08-31] MEDS: carvediloL 12.5 MG TABLET PO (21:28)
[2020-09-01] VITALS: BP 163/70; PULSE 72; RESP 18; TEMP 36.9; O2SAT 97
[2020-09-01 04:00] VITALS: BP 144/68; PULSE 61; RESP 16; TEMP 36.6; O2SAT 99
[2020-09-01 04:19] LABS: MANUAL DIFF FLAG NO
[2020-09-01 04:21] LABS: Basophils Percent Auto 0.7 % (0-2); Eosinophils Absolute Auto 0.2 X10*3/uL (0.0-0.4); Eosinophils Percent Auto 3.3 % (0-4); Hematocrit 29.4 % (42-52); Hemoglobin 9.6 g/dl (14.0-18.0); Imm Gran Abs Auto 0.01 X10*3/uL (0.00-0.03); Imm Gran Pct Auto 0.2 % (0.0-0.4); Lymphocytes Absolute Auto 0.8 X10*3/uL (1.2-4.9); Lymphocytes Percent Auto 13.4 % (20-40); Mean Corpuscular HGB Conc 32.7 g/dl (31.0-36.0); Mean Corpuscular Hemoglobin 31.3 pg (27.0-33.0); Mean Corpuscular Volume 95.8 fL (80-98); Mean Platelet Volume 10.8 fL (9.4-12.4); Monocytes Absolute Auto 0.6 X10*3/uL (0.1-1.2); Neutrophils Absolute Auto 4.2 X10*3/uL (2.0-8.3); Neutrophils Percent Auto 71.4 % (45-73); Platelet Count 179 X10*3/uL (160-400); Red Blood Count 3.07 X10*6/uL (4.60-5.80); Red Cell Distribution Width 14.2 % (11.0-16.0); White Blood Count 5.8 X10*3/uL (4.8-10.8)
[2020-09-01 04:29] LABS: PTT Heparin Drip 61.9 SEC (53-77.9)
[2020-09-01 05:02] LABS: Anion Gap 16 (12-20); Blood Urea Nitrogen 51 mg/dL (9-16); Calcium 8.2 mg/dL (8.4-10.2); Carbon Dioxide 25 mmol/L (22-29); Chloride 97 mmol/L (96-108); Estimated Glomerular Filt Rate 10; Glucose Fasting 184 mg/dL (60-99); Sodium 134 mmol/L (135-145)
--- NOTE | 2020-09-01 05:12 | PC.NURSE ---
2220 ptthd was 50.7 low given bolus 2739 units and drip increased to 16 units/kg/hr which is 10.95 ml/hr next ptthd at 0420
--- NOTE | 2020-09-01 05:26 | PC.NURSE ---
0430 PTTHD is 61.9 no change in heparin drip is 16 u/kg/hr 10.95 ml/hr next PTTHD DRAW AT 1030 AM
--- NOTE | 2020-09-01 07:20 | PC.NURSE ---
heparin drip in mar not matching the drip on pump i was told by previous nurse that order was placed and pt was weight again and was little diffrent then previous so adjusted heparin drip was done on pump and it has been running since rate is now 16u/kg/hr which is 10.95 ml/hr and its therapeutic now.
[2020-09-01 07:50] LABS: Glucose, Whole Blood 101 mg/dL (60-115)
--- NOTE | 2020-09-01 09:09 | P.DS_ITS ---
DS: Providers Provider Date of admission: 08/30/20 02:42 Primary care physician: Unknown Physician Consults: 08/30/20 04:28 Consult to Cardiology Routine Consulting Provider: Joey Elizabeth Reason for consultation: NSTEMI 08/30/20 08:54 Consult to Nephrology Routine Consulting Provider: Javi Villanueva Reason for consultation: ESRD Dialysis DS: Diagnosis Discharge Diagnosis (1) ESRD on dialysis: Status: Acute (2) Acute non-ST elevation myocardial infarction (NSTEMI): Status: Acute (3) Hypertension: Status: Acute Problem details: resume outpt med, euvolemic today, meds reviewed. DS: Summary Hospital Course Hospital Course: From initial H&P: 85-year-old male with past medical history of diabetes, hypertension, coronary artery disease, ESRD on dialysis Thursday and , who presents to the hospital with chest pain. On my interview patient is pretty lethargic, unable to focus on my questions but does endorse chest pain that started yesterday. Most of the history is obtained from the ED PA who saw the patient on initial presentation peer it appears the patient has been having chest pain for the past few weeks. He presented to [facility] in [place] with similar complaints last week. He returns today stating that he has been having chest pain on and off occurs on exertion. Reported to be heavy room in sensation, non-radiating. When asked the patient how bad the pain once he said not too bad on arrival to the ED hemodynamically stable with no significant abnormal vice Labs are significant for hemoglobin of 10.1, BUN of 34, creatinine of 5.3, initial troponin of 69.4, increased to 590.2 cardiology was consulted and patient was started on heparin ggt and will be admitted for further management history is obtained from chart as patient is lethargic and not cooperating. PMHx: HTN, diabetes, HLP, CAD, BPH, ESRD on dialysis, past surgical history: None hospital course: Patient was admitted for non ST elevation [place]. He was given IV heparin for 48 hours. course was complicated by some hospital delirium in the setting of dementia. Patient would benefit most from being in his familiar environment. He will be discharged home and continue dual antiplatelet and statin therapy. Time Spent with Patient Time attestation: Total time spent providing and/or coordinating discharge services: Physical Exam Vital Signs: Vital Signs: Vital Signs Temp Pulse Resp BP Pulse Ox 09/01/20 04:00 98 F 61 16 144/68 H 99 09/01/20 00:00 98.4 F 72 18 163/70 H 97 08/31/20 21:28 68 143/61 H 08/31/20 19:28 97.9 F 64 20 142/63 H 97 08/31/20 15:35 97.3 F 64 18 151/69 H 93 08/31/20 15:20 18 08/31/20 11:30 96.6 F L 60 18 111/56 L 96 Body Mass Index 23.6 General: confused, alert, no acute distress Resp: CTA bilateral CVS: S1,S2,RRR GI: soft, non tender, non distended Neuro: motor grossly intact Psych: impaired insight DS: Data Data Completed and Pending Labs on day of discharge: Labs from last 24 hours 09/01/20 09/01/20 09/01/20 08:48 07:45 04:13 WBC RBC Hgb Hct MCV MCH MCHC RDW Plt Count MPV Immature Gran % (Auto) Neut % (Auto) Lymph % (Auto) [place] % (Auto) Eos % (Auto) Baso % (Auto) Lymph # (Auto) [place] # (Auto) Eos # (Auto) Baso # (Auto) Abs Immat Gran (auto) Absolute Neuts (auto) Absolute Nucleated RBC Nucleated RBC % (auto) PTT (Heparin Protocol) Pending 61.9 D Sodium Potassium Chloride Carbon Dioxide Anion Gap BUN Creatinine Estim Creat Clear Calc Estimated GFR POC Glucose 101 Fasting Glucose Calcium 09/01/20 09/01/20 08/31/20 04:12 04:12 21:05 WBC 5.8 RBC 3.07 L Hgb 9.6 L Hct 29.4 L MCV 95.8 MCH 31.3 MCHC 32.7 RDW 14.2 Plt Count 179 MPV 10.8 Immature Gran % (Auto) 0.2 Neut % (Auto) 71.4 Lymph % (Auto) 13.4 L [place] % (Auto) 11.0 Eos % (Auto) 3.3 Baso % (Auto) 0.7 Lymph # (Auto) 0.8 L [place] # (Auto) 0.6 Eos # (Auto) 0.2 Baso # (Auto) 0.0 Abs Immat Gran (auto) 0.01 Absolute Neuts (auto) 4.2 Absolute Nucleated RBC 0.000 Nucleated RBC % (auto) 0.0 PTT (Heparin Protocol) 50.7 L Sodium 134 L Potassium 4.0 Chloride 97 Carbon Dioxide 25 Anion Gap 16 BUN 51 H D Creatinine 5.61 H* Estim Creat Clear Calc 9.0 Estimated GFR 10 POC Glucose Fasting Glucose 184 H D Calcium 8.2 L 08/31/20 08/31/20 08/31/20 20:39 16:01 14:45 WBC RBC Hgb Hct MCV MCH MCHC RDW Plt Count MPV Immature Gran % (Auto) Neut % (Auto) Lymph % (Auto) [place] % (Auto) Eos % (Auto) Baso % (Auto) Lymph # (Auto) [place] # (Auto) Eos # (Auto) Baso # (Auto) Abs Immat Gran (auto) Absolute Neuts (auto) Absolute Nucleated RBC Nucleated RBC % (auto) PTT (Heparin Protocol) 55.5 D Sodium Potassium Chloride Carbon Dioxide Anion Gap BUN Creatinine Estim Creat Clear Calc Estimated GFR POC Glucose 111 211 H Fasting Glucose Calcium 08/31/20 11:44 WBC RBC Hgb Hct MCV MCH MCHC RDW Plt Count MPV Immature Gran % (Auto) Neut % (Auto) Lymph % (Auto) [place] % (Auto) Eos % (Auto) Baso % (Auto) Lymph # (Auto) [place] # (Auto) Eos # (Auto) Baso # (Auto) Abs Immat Gran (auto) Absolute Neuts (auto) Absolute Nucleated RBC Nucleated RBC % (auto) PTT (Heparin Protocol) Sodium Potassium Chloride Carbon Dioxide Anion Gap BUN Creatinine Estim Creat Clear Calc Estimated GFR POC Glucose 135 H Fasting Glucose Calcium Discharge Plan Discharge Patient Disposition: Home Health Service Referrals: Physician,Unknown [Primary Care Provider] - Discharge Medications: Continued furosemide 40 mg Tablet 40 mg PO BID RF: 0 atorvastatin 80 mg Tablet 80 mg PO DAILY RF: 0 carvedilol 6.25 mg Tablet 6.25 mg PO BID RF: 0 clopidogrel 75 mg Tablet 75 mg PO DAILY RF: 0 aspirin 81 mg Tablet,Delayed Release (Dr/Ec) 81 mg PO DAILY RF: 0 isosorbide mononitrate 120 mg Tablet Extended Release 24 Hr 120 mg PO DAILY RF: 0 nifedipine 90 mg Tablet Extended Release 24hr 90 mg PO DAILY RF: 0 losartan 25 mg Tablet 25 mg PO DAILY RF: 0 glipizide 5 mg Tablet 5 mg PO DAILY RF: 0 terazosin 2 mg Capsule 2 mg PO DAILY RF: 0 nitroglycerin 0.4 mg Tablet, Sublingual 0.4 mg SUBLINGUAL Q5M PRN (Reason: Chest Pain) RF: 0 sevelamer carbonate 800 mg Tablet 800 mg PO TID RF: 0 Discharge Orders: Discharge Order (Routine); Ordered 09/01/20 Ordered By: Margarito Negron Diet: advance to your usual diet Activity on Discharge: As tolerated Visit Report Forms: Patient Portal Discharge page Care Plan Goals: recovery Health Concerns: CAD, dementia Plan of Treatment: continue medical management
[2020-09-01 09:15] LABS: PTT Heparin Drip 59.5 SEC (53-77.9)
--- NOTE | 2020-09-01 09:53 | MHC.CM.PN ---
Discharge today with [facility] and family support.
--- NOTE | 2020-09-01 10:17 | MHC.CM.PN ---
Addendum entered by Tamie Washburn 09/01/20 11:21: Daughter Jazmin phone number is [phone] Original Note: LOAN spoke to pts daughter Arnav () who reports the plan is for pt to go home with services. Referal made to [facility] for PT/SN/PERSONAL CARE SERVICE PROVIDER. Arnav requests [facility] use her phone number to schedule any meetings or collect/provide any information. She also expresses concern that the pt misses his evening dose of medication at times but is aware the [facility] is unable to administer medications. Daughter also reporting concern that she got two calls yesterday regarding pts behavior but understands he may do better in a familiar environment. She understands that if pt were unmanageable at home and she had concern regarding his safety, she would bring pt to nearest ED or call the ambulance. arnav reports she will transport pt at discharge and would like DC paperwork reviewed with her. She requests pts nurse call her when pt is ready to be picked up info relayed to unit nurse. [facility] informed of pts DC via [employer]
--- NOTE | 2020-09-01 10:27 | P.CONCA_ITS ---
History of Present Illness History of Present Illness Date of Consult: September 01, 2020 Requesting physician: Alec Mckeon Chief complaint: SOB, ?CHF PMFSH Past Medical History Medical History (Updated 08/31/20 @ 18:36 by Erika Sims RN) Dementia Dialysis patient Kidney disease Social History Social History Household Members: Unknown / Unable to assess Housing: Unknown / Unable to assess Do you presently have visiting nurse or other home services: No Alcohol intake: never Smoking Status: Never smoker Use of substances other than those prescribed or required for medical reasons: Unknown Currently Displaying Signs/Symptoms of Drug Intoxication Withdrawal: No Advance Directives: No Advance Directives Information Provided: No Do you have thoughts of harming others: None Do you have a plan to hurt others: No Plan Recently lost weight without trying: Unsure service: Yes Current occupational status: retired [employer] Allergies Allergy/AdvReac Type Severity Reaction Status Date / Time hydralazine Allergy Mild NAUSEA AND Verified 08/29/20 18:06 VOMITING, hallucinations Home Medications Medication Instructions Recorded Confirmed Type aspirin 81 mg PO DAILY 08/30/20 08/30/20 History atorvastatin 80 mg PO DAILY 08/30/20 08/30/20 History carvedilol 6.25 mg PO BID 08/30/20 08/30/20 History clopidogrel 75 mg PO DAILY 08/30/20 08/30/20 History furosemide 40 mg PO BID 08/30/20 08/30/20 History glipizide 5 mg PO DAILY 08/30/20 08/30/20 History isosorbide mononitrate 120 mg PO DAILY 08/30/20 08/30/20 History losartan 25 mg PO DAILY 08/30/20 08/30/20 History nifedipine 90 mg PO DAILY 08/30/20 08/30/20 History nitroglycerin 0.4 mg SUBLINGUAL Q5M PRN 08/30/20 08/30/20 History sevelamer carbonate 800 mg PO TID 08/30/20 08/30/20 History terazosin 2 mg PO DAILY 08/30/20 08/30/20 History Physical Exam Vital Signs: Vital Signs: Vital Signs Temp Pulse Resp BP Pulse Ox 09/01/20 04:00 98 F 61 16 144/68 H 99 09/01/20 00:00 98.4 F 72 18 163/70 H 97 08/31/20 21:28 68 143/61 H 08/31/20 19:28 97.9 F 64 20 142/63 H 97 08/31/20 15:35 97.3 F 64 18 151/69 H 93 08/31/20 15:20 18 08/31/20 11:30 96.6 F L 60 18 111/56 L 96 Body Mass Index 23.6 Results Labs and Meds Result diagrams: 09/01/20 04:12 09/01/20 04:12 Lab results: Laboratory Results - last 24 hr 08/31/20 08/31/20 08/31/20 11:44 14:45 16:01 WBC RBC Hgb Hct MCV MCH MCHC RDW Plt Count MPV Immature Gran % (Auto) Neut % (Auto) Lymph % (Auto) [place] % (Auto) Eos % (Auto) Baso % (Auto) Lymph # (Auto) [place] # (Auto) Eos # (Auto) Baso # (Auto) Abs Immat Gran (auto) Absolute Neuts (auto) Absolute Nucleated RBC Nucleated RBC % (auto) PTT (Heparin Protocol) 55.5 D Sodium Potassium Chloride Carbon Dioxide Anion Gap BUN Creatinine Estim Creat Clear Calc Estimated GFR POC Glucose 135 H 211 H Fasting Glucose Calcium 08/31/20 08/31/20 09/01/20 20:39 21:05 04:12 WBC 5.8 RBC 3.07 L Hgb 9.6 L Hct 29.4 L MCV 95.8 MCH 31.3 MCHC 32.7 RDW 14.2 Plt Count 179 MPV 10.8 Immature Gran % (Auto) 0.2 Neut % (Auto) 71.4 Lymph % (Auto) 13.4 L [place] % (Auto) 11.0 Eos % (Auto) 3.3 Baso % (Auto) 0.7 Lymph # (Auto) 0.8 L [place] # (Auto) 0.6 Eos # (Auto) 0.2 Baso # (Auto) 0.0 Abs Immat Gran (auto) 0.01 Absolute Neuts (auto) 4.2 Absolute Nucleated RBC 0.000 Nucleated RBC % (auto) 0.0 PTT (Heparin Protocol) 50.7 L Sodium Potassium Chloride Carbon Dioxide Anion Gap BUN Creatinine Estim Creat Clear Calc Estimated GFR POC Glucose 111 Fasting Glucose Calcium 09/01/20 09/01/20 09/01/20 04:12 04:13 07:45 WBC RBC Hgb Hct MCV MCH MCHC RDW Plt Count MPV Immature Gran % (Auto) Neut % (Auto) Lymph % (Auto) [place] % (Auto) Eos % (Auto) Baso % (Auto) Lymph # (Auto) [place] # (Auto) Eos # (Auto) Baso # (Auto) Abs Immat Gran (auto) Absolute Neuts (auto) Absolute Nucleated RBC Nucleated RBC % (auto) PTT (Heparin Protocol) 61.9 D Sodium 134 L Potassium 4.0 Chloride 97 Carbon Dioxide 25 Anion Gap 16 BUN 51 H D Creatinine 5.61 H* Estim Creat Clear Calc 9.0 Estimated GFR 10 POC Glucose 101 Fasting Glucose 184 H D Calcium 8.2 L 09/01/20 08:48 WBC RBC Hgb Hct MCV MCH MCHC RDW Plt Count MPV Immature Gran % (Auto) Neut % (Auto) Lymph % (Auto) [place] % (Auto) Eos % (Auto) Baso % (Auto) Lymph # (Auto) [place] # (Auto) Eos # (Auto) Baso # (Auto) Abs Immat Gran (auto) Absolute Neuts (auto) Absolute Nucleated RBC Nucleated RBC % (auto) PTT (Heparin Protocol) 59.5 Sodium Potassium Chloride Carbon Dioxide Anion Gap BUN Creatinine Estim Creat Clear Calc Estimated GFR POC Glucose Fasting Glucose Calcium
--- NOTE | 2020-09-01 10:30 | W.PM.DNNEP ---
Subjective Subjective This patient was seen during dialysis. less confused by report. access working well. no cp or sob. Physical Exam Vital Signs: Vital Signs: Vital Signs Temp Pulse Resp BP Pulse Ox 09/01/20 04:00 98 F 61 16 144/68 H 99 09/01/20 00:00 98.4 F 72 18 163/70 H 97 08/31/20 21:28 68 143/61 H 08/31/20 19:28 97.9 F 64 20 142/63 H 97 08/31/20 15:35 97.3 F 64 18 151/69 H 93 08/31/20 15:20 18 08/31/20 11:30 96.6 F L 60 18 111/56 L 96 Body Mass Index 23.6 Const: General: cooperative HENMT: Head: Yes normal to inspection Eyes: General: appearance normal, both eyes and all related structures Neck: Neck: Yes normal visual inspection Chest: Chest palpation & inspection: normal inspection of the chest Resp: Auscultation: clear to auscultation bilaterally Cardio: Jugular venous distension: no JVD Rate: regular rate GI: Inspection: Yes normal to inspection Skin: General skin exam: no rashes or lesions noted Extrem: General: Yes pedal edema Assessment & Plan Assessment and plan (1) ESRD on dialysis: Problem details: tolerating dialysis well. continue TTS schedule. [facility] dialysis unit upon discharge Status: Acute (2) Acute non-ST elevation myocardial infarction (NSTEMI): Problem details: consider further afterload reduction by increasing ARB losartan Status: Acute Time Spent With Patient Time: Total time spent is greater than 50% in coordination of care (as documented) at patient's floor/unit and/or counseling patient:
[2020-09-01 11:15] LABS: Glucose, Whole Blood 103 mg/dL (60-115)
[2020-09-01] MEDS: Losartan Potassium 25 MG TABLET PO (11:52)
[2020-09-01] MEDS: carvediloL 12.5 MG TABLET PO (11:52)
[2020-09-01] MEDS: Atorvastatin Calcium 80 MG TABLET PO (11:53)
[2020-09-01] MEDS: Clopidogrel Bisulfate 75 MG TABLET PO (11:53)
[2020-09-01] MEDS: Furosemide 40 MG TABLET PO (11:53)
[2020-09-01] MEDS: NIFEdipine ER 90 MG TAB.ER.24 PO (11:53)
[2020-09-01] MEDS: Aspirin Enteric Coated 81 MG TABLET.DR PO (11:55)
== END 2020-09-01 14:15 | disposition home health service (06) | DRG 280 ==
LOC: HO.ED 08-30 02:23 → HO.IMC 08-30 02:54
PROVIDERS: Physician Assistant; Admitting Provider Internal Medicine; Emergency Provider Emergency Medicine; Visit Provider Internal Medicine
DX: I21.4 Non-ST elevation (NSTEMI) myocardial infarction (principal); N18.6 End stage renal disease; F05 Delirium due to known physiological condition; I13.2 Hypertensive heart and chronic kidney disease with heart failure and with stage 5 chronic kidney disease, or end stage renal disease; E11.22 Type 2 diabetes mellitus with diabetic chronic kidney disease; I25.10 Atherosclerotic heart disease of native coronary artery without angina pectoris; F03.90 Unspecified dementia, unspecified severity, without behavioral disturbance, psychotic disturbance, mood disturbance, and anxiety; I50.9 Heart failure, unspecified; Z99.2 Dependence on renal dialysis; Z79.02 Long term (current) use of antithrombotics/antiplatelets; Z79.82 Long term (current) use of aspirin; Z79.84 Long term (current) use of oral hypoglycemic drugs; Z79.899 Other long term (current) drug therapy; Z66 Do not resuscitate
CPT/HCPCS: 36415; 71045; 80048; 80053; 80076; 82947; 83690; 83880; 84484; 85025; 85610; 85730; 90999; 93005; 96365; 96375; 96376; 99232; 99285; J2405